=== PATIENT | female | born 1970 | race Caucasian/White ===

== ENCOUNTER 2017-06-20 18:58 | Emergency (ER) | payer MEDICAID ==
[2017-06-20 21:55] LABS: microscopic required? YES; urine erythrocyte 1+ (NEGATIVE)
[2017-06-20 21:58] LABS: BASOPHIL % 0.7 % (0-2); PLATELET COUNT 350 x10^3mcL (130-400)
[2017-06-20 22:08] LABS: CALCIUM 9.2 mg/dL (8.5-10.1); CARBON DIOXIDE 29.1 mmol/L (21-32); CHLORIDE SERUM 105 mmol/L (98-107); CREATININE SERUM 0.7 mg/dL (0.6-1.0); GFR1 > 60 mL/min; GLUCOSE SERUM 107 mg/dL (74-106); POTASSIUM SERUM 3.9 mmol/L (3.5-5.1); SODIUM SERUM 140 mmol/L (136-145)
[2017-06-21 00:34] VITALS: BP 128/71
== END 2017-06-21 00:35 | disposition home or self-care (01) ==
LOC: ED 18:58
PROVIDERS: Emergency Medicine Emergency Medical Services
DX: K80.20 Calculus of gallbladder without cholecystitis without obstruction (principal)
CPT/HCPCS: 36415; Q0092

== ENCOUNTER 2018-11-04 11:42 | Inpatient (IN) | payer MEDICAID ==
[~2018-11-04] VITALS: Ht 152.4 cm; Wt 78.1 kg
[2018-11-04 11:49] VITALS: Ht 152.4 cm; Wt 78.1 kg
[2018-11-04 12:30] LABS: BASOPHIL % 0.7 % (0-2); PLATELET COUNT 330 x10^3mcL (130-400); RED CELL DISTRIBUTION WIDTH 14.1 % (11.5-14.5)
[2018-11-04 12:41] LABS: CALCIUM 8.7 mg/dL (8.5-10.1); CHLORIDE SERUM 106 mmol/L (98-107); CREATININE SERUM 0.8 mg/dL (0.6-1.0); GFR1 > 60 mL/min; GLUCOSE SERUM 107 mg/dL (74-106); POTASSIUM SERUM 4.2 mmol/L (3.5-5.1); SODIUM SERUM 142 mmol/L (136-145)
[2018-11-04 12:46] LABS: ALBUMIN 3.6 g/dL (3.4-5.0); ALKALINE PHOSPHATASE 91 U/L (46-116); ALT/SGPT 56 U/L (14-59); AST/SGOT 31 U/L (15-37); BILIRUBIN TOTAL 0.35 mg/dL (0.20-1.00); CHOLESTEROL 157 mg/dL (<200); TOTAL PROTEIN, SERUM 7.5 g/dL (6.4-8.2); TRIGLYCERIDES 82 mg/dL (<150)
[2018-11-04 12:58] LABS: CHOLESTEROL/HDL RATIO 2.6; HDL CHOLESTEROL 61 mg/dL (40-60)
[2018-11-04 14:33] LABS: AMPHETAMINE QUAL UR NONE DETECTED (See below)
[2018-11-04 15:42] LABS: T3 TOTAL 1.35 ng/mL
[2018-11-04 15:46] VITALS: BP 127/70
[2018-11-04 15:51] LABS: FREE T4 1.16 ng/dL (0.76-1.46); FREE THYROXINE INDEX 3.7 ug/dL (1.4-4.5); T4(THYROXINE) 10.4 ug/dL (4.7-13.3)
[2018-11-04 17:19] VITALS: BP 129/72
[2018-11-04 20:29] VITALS: BP 111/58
[2018-11-05 05:44] LABS: CALCIUM 8.4 mg/dL (8.5-10.1); CARBON DIOXIDE 29.2 mmol/L (21-32); CHLORIDE SERUM 109 mmol/L (98-107); CREATININE SERUM 0.8 mg/dL (0.6-1.0); GFR1 > 60 mL/min; GLUCOSE SERUM 92 mg/dL (74-106); MAGNESIUM 2.1 mg/dL (1.8-2.4); PHOSPHOROUS 3.7 mg/dL (2.5-4.9); POTASSIUM SERUM 3.6 mmol/L (3.5-5.1); SODIUM SERUM 139 mmol/L (136-145)
[2018-11-05 06:03] VITALS: BP 120/74
[2018-11-05 07:44] LABS: BASOPHIL % 0.6 % (0-2); PLATELET COUNT 322 x10^3mcL (130-400); RED CELL DISTRIBUTION WIDTH 14.3 % (11.5-14.5)
[2018-11-05 08:28] VITALS: BP 120/74
[2018-11-05 09:26] VITALS: BP 113/68
== END 2018-11-05 10:21 | disposition home or self-care (01) | DRG 756 ==
LOC: ED 11:42 → DU 14:21
PROVIDERS: Emergency Medicine; ADMIT Family Medicine
DX: F41.8 Other specified anxiety disorders (principal); N17.0 Acute kidney failure with tubular necrosis; Z68.33 Body mass index [BMI] 33.0-33.9, adult
CPT/HCPCS: 83880; 84439; 85378; J1885; J7030